=== PATIENT | female | born 1995 | race Caucasian/White ===

== ENCOUNTER → 2018-01-25 | Outpatient (CLI) | payer SELFPAY ==
[2015-06-01 23:30] VITALS: BP 144/63
[~2018-01-25] MED LIST: CEPHALEXIN500 M1 PO
[2018-01-25 18:52] LABS: CLUE CELLS PRESENT (Not Observd)
== END ==
LOC: LAB 18:09
PROVIDERS: Physician Assistant
DX: N73.9 Female pelvic inflammatory disease, unspecified (principal)
CPT/HCPCS: Q0111

== ENCOUNTER → 2021-04-27 | Outpatient (CLI) | payer OTHER | LOC: LAB 17:01 | DX: Z20.822 Contact with and (suspected) exposure to COVID-19 (principal) ==